=== PATIENT | male | born 1965 | race Caucasian/White ===

== ENCOUNTER 2016-09-04 13:53 | Inpatient (IN) | payer BC ==
[~2016-09-04] VITALS: Ht 182.9 cm; Wt 166.8 kg
[2016-09-04] MEDS ORDERED: LOSA100T2 PO (14:18)
[2016-09-04] MEDS ORDERED: METF500T PO (14:18)
[2016-09-04] MEDS ORDERED: MULTTAB22 PO (14:18)
[2016-09-04] MEDS ORDERED: SIMV40TA PO (14:18)
[2016-09-04] MEDS ORDERED: PIOG45TA3 PO (14:18)
[2016-09-04] MEDS ORDERED: EXEN1INJ SQ (14:18)
[2016-09-04] MEDS ORDERED: AMLO10TA2 PO (14:18)
[2016-09-16] VITALS (7 sets, daily range): BP systolic 102–175; BP diastolic 67–106; PULSE 81–102; RESP 16–18; TEMP 96.4–98.4; O2SAT 90–97
[2016-09-16] MEDS ORDERED: ceFAZolin 2 GM PREMIX 50 ML IV SCH (05:45)
[2016-09-16] MEDS ORDERED: LACTATED RINGER'S 1000 ML IV PRN (05:45)
[2016-09-16] MEDS ORDERED: METOPROLOL TARTRATE 25 MG TAB PO PRN (05:45)
[2016-09-16] MEDS ORDERED: POVIDONE IODINE 5% (ANTISEPSIS KIT) 4 APPLICATIONS EACH NARE PRN (05:45)
[2016-09-16] MEDS ORDERED: CHLORHEXIDINE GLUCONATE 2 % 1 PACK (2 CLOTHS) TOPICAL PRN (05:45)
[2016-09-16] MEDS ORDERED: SODIUM CHLORID 0.9% 500 ML IV PRN (05:45)
[2016-09-16] MEDS ORDERED: INSULIN HUMAN REGULAR 1,000 UNITS/10 ML VIAL SQ PRN (05:45)
[2016-09-16] MEDS ORDERED: GENTAMICIN SULFATE 80 MG/2 ML VIAL ONE (06:19)
[2016-09-16] MEDS ORDERED: TRANEXAMIC ACID IV SCH ×2 (06:30→10:00)
[2016-09-16] MEDS ORDERED: EXPAREL PERI-ARTICULAR INJECTION (TOTAL VOL. 60 ML) P-ARTICULR SCH ×2 (06:30)
[2016-09-16] MEDS ORDERED: SODIUM CHLORIDE 0.9% IV SCH ×2 (06:30→10:00)
[2016-09-16] MEDS ORDERED: DEXAMETHASONE SOD PHOS 4 MG/ML VIAL ONE (06:38)
[2016-09-16] MEDS ORDERED: MIDAZOLAM HCL 2 MG/2 ML VIAL ONE ×2 (06:38→07:08)
[2016-09-16] MEDS ORDERED: FAMOTIDINE 20 MG/2 ML VIAL ONE (06:38)
[2016-09-16] MEDS: LACTATED RINGER'S 1000 ML INJ 1,000 ML IV SCH ×2 (06:56→17:57)
[2016-09-16] MEDS ORDERED: Post-op Orders (for Pharmacy) MISC XX ONE (07:00)
[2016-09-16] MEDS ORDERED: SODIUM CHLORIDE 0.9% FLUSH 5 ML FLUSH IVF PRN (07:00)
[2016-09-16] MEDS ORDERED: MORPHINE SULFATE 4 MG/ML INJ IV PUSH PRN (07:00)
[2016-09-16] MEDS ORDERED: TRANEXAMIC ACID INJ 0 MG in SODIUM CHLORIDE 0.9% INJ 100 ML IV SCH (07:00)
[2016-09-16] MEDS ORDERED: BUPIVACAINE HCL PF 0.5% 30 ML VIAL NERV BLOCK ONE (08:13)
[2016-09-16] MEDS ORDERED: NON-FORMULARY DRUG (Losartan-Hydrochlorothiazide 1 TAB) PO SCH (09:00)
[2016-09-16] MEDS: SODIUM CHLORIDE 0.9% FLUSH 5 ML FLUSH IVF SCH ×2 (09:00→21:00)
[2016-09-16] MEDS ORDERED: metFORMIN HCL 500 MG TAB PO SCH (09:00)
--- NOTE | 2016-09-16 10:49 | HHI.FF ---
Face to Face Verification Diagnosis: (1) Status post total left knee replacement Physical Therapy Gait training Knee: Total knee, Protocol: Left, Gait training, Full weight bearing Left LE Weight Bearing: WB as tolerated Left LE Range of Motion: Active ROM (AROM, AAROM, PROM, PRE. ROM goal is 0 to 120 degrees. ROM in OR was 0 to 120 degrees.) Nursing Nursing: Dressing changes Dressing Changes: Daily dressing change, Coverderm/Primapore Additional Instructions Remove steristrips on postop day 14. I have seen patient Mike Duque on 09/16/16. My clinical findings support the need for the requested home health care services because: Ltd mobility - disease progression Limited ability to care for self High risk of falls I certify that my clinical findings support that this patient is homebound because: Post-op weakness Unsteady gait/balance Unsafe to leave home unassisted Naeem Padilla MD (Charles) Sep 16, 2016 10:49
[2016-09-16] MEDS ORDERED: ACETAMINOPHEN 1000 MG/100 ML VIAL IV ONE (10:53)
[2016-09-16] MEDS ORDERED: ONDANSETRON HCL 4 MG/2 ML VIAL IVP PRN (11:30)
--- NOTE | 2016-09-16 11:55 | RADRPT ---
EXAM DATE/TIME: 09/16/2016 11:02 [place] COMPARISON: No previous studies available for comparison. INDICATIONS : Post op knee surgery MEDICAL HISTORY : None. SURGICAL HISTORY : None. ENCOUNTER: Initial ACUITY: 1 day PAIN SCORE: Non-responsive. LOCATION: Left knee FINDINGS: AP and lateral views of the left knee were obtained and demonstrate that the patient is status post a rthroplasty. The tibial and femoral components are intact and in normal alignment. There are postoper ative changes involving the patella with anterior soft tissue swelling and gas in the soft tissues. T here are [address]. CONCLUSION: Suspected postoperative changes status post arthroplasty. Bhupendra Kinney MD on September 16, 2016 at 11:52 Board Certified Radiologist. This report was verified electronically.
[2016-09-16] MEDS ORDERED: LACTATED RINGER'S 1000 ML INJ 1,000 ML IV ONE (12:00)
[2016-09-16] MEDS ORDERED: PROPOFOL 200 MG/20 ML AMP IV ONE (12:00)
[2016-09-16 12:05] LABS: AUTOMATED NEUTROPHIL # 8.3 TH/MM3 (1.8-7.7); BASOPHIL % 0.3 % (0.0-2.0); EOSINOPHIL % 0.4 % (0.0-4.0); HEMATOCRIT 37.2 % (39.0-51.0); LYMPH % 6.3 % (9.0-44.0); LYMPHOCYTE # 0.6 TH/MM3 (1.0-4.8); MEAN CELL VOLUME 78.9 FL (80.0-100.0); MEAN CORPUSCULAR HEMOGLOBIN 24.8 PG (27.0-34.0); MEAN CORPUSCULAR HGB CONC 31.4 % (32.0-36.0); MONO % 1.7 % (0.0-8.0); NEUT % 91.3 % (16.0-70.0); PLATELET COUNT 267 TH/MM3 (150-450); RED BLOOD COUNT 4.71 MIL/MM3 (4.50-5.90); RED CELL DISTRIBUTION WIDTH 15.7 % (11.6-17.2)
[2016-09-16 12:06] LABS: HEMO FLAGS AUTO DIFF
[2016-09-16 12:29] LABS: BICARBONATE 26.9 MEQ/L (21.0-32.0); POTASSIUM 4.3 MEQ/L (3.5-5.1)
[2016-09-16 12:43] LABS: SCAN/DIFF AUTO DIFF CONFIRMED
[2016-09-16] MEDS: LOSARTAN 50 MG TAB PO SCH (13:26)
[2016-09-16] MEDS: MULTIVITAMINS/MINERALS THERAPEUTIC TAB PO SCH (13:26)
[2016-09-16] MEDS: KETOROLAC TROMETHAMINE 30 MG/ML (IVP) VIAL IVP SCH ×3 (13:27→23:43)
[2016-09-16] MEDS: MAGNESIUM HYDROXIDE SUSP 30 ML CUP PO PRN (13:28)
[2016-09-16] MEDS: ACETAMINOPHEN/HYDROcodone 325 MG/7.5 MG TAB PO PRN ×3 (13:28→23:43)
[2016-09-16] MEDS: HYDROCHLOROTHIAZIDE 25 MG TAB PO SCH (13:36)
[2016-09-16] MEDS: PIOGLITAZONE HCL 45 MG TAB PO SCH (15:25)
--- NOTE | 2016-09-16 18:18 | PD.CONS ---
[facility] Reason for Consult Med management Primary Care Physician Non-Staff Diagnoses: History of Present Illness 51 years old male admitted for elective left total knee arthroplasty, patient has a history of hypertension diabetes mellitus and hyperlipidemia, he had his right knee replaced previously, I saw the patient postop he was doing well, no chest pain or short of breath, no abdominal pain or fever or chills, his left knee has no pain he had still under anesthesia effect. Review of Systems All 10 systems reviewed and was positive for what is mentioned in history of present illness otherwise negative Past Family Social History Allergies: Coded Allergies: No Known Allergies (Unverified , 09/16/16) Past Medical History Hypertension Hyperlipidemia Diabetes mellitus Family History Grandfather has heart attack in his 80s Social History Denied tobacco alcohol or illicit drug abuse Physical Exam Vital Signs Vital Signs Date Time Temp Pulse Resp B/P Pulse Ox O2 Delivery O2 Flow Rate FiO2 09/16/16 16:31 97 Nasal Cannula 4.00 09/16/16 16:00 97.0 102 18 102/67 96 09/16/16 14:05 97 Nasal Cannula 4.00 09/16/16 13:25 92 159/106 97 161/97 09/16/16 12:00 96.4 85 18 123/73 90 09/16/16 11:30 82 14 135/84 97 Nasal Cannula 4 09/16/16 11:15 78 13 137/77 95 Nasal Cannula 4 09/16/16 11:00 81 13 136/78 94 Nasal Cannula 4 09/16/16 10:45 86 13 125/78 93 Nasal Cannula 4 09/16/16 10:39 98.6 88 12 131/79 95 Nasal Cannula 4 09/16/16 05:43 98.3 81 16 175/100 95 Physical Exam GENERAL: This is a well-nourished, well-developed patient, in no apparent distress. SKIN: No rashes, warm and dry HEAD: Atraumatic. Normocephalic. EYES: Pupils equal round and reactive. Extraocular motions intact. No scleral icterus. ENT: Nose without bleeding, or drainage, Airway patent. NECK: Trachea midline. Supple CARDIOVASCULAR: Regular rate and rhythm without murmurs, gallops, or rubs. RESPIRATORY: Fair air entry bilaterally. No wheezes, rales, or rhonchi. GASTROINTESTINAL: Abdomen soft, non-tender, nondistended. Positive bowel sounds MUSCULOSKELETAL: Extremities without clubbing, cyanosis, or edema. Pedal pulses appreciated NEUROLOGICAL: Awake and alert. Moves all extremity except left lower extremity being operated on. Normal speech.no focal neurological deficit Laboratory Laboratory Tests Test 09/16/16 09/16/16 05:41 11:45 Blood Type A POSITIVE Antibody Screen NEGATIVE White Blood Count 9.0 Red Blood Count 4.71 Hemoglobin 11.7 Hematocrit 37.2 Mean Corpuscular Volume 78.9 Mean Corpuscular Hemoglobin 24.8 Mean Corpuscular Hemoglobin 31.4 Concent Red Cell Distribution Width 15.7 Platelet Count 267 Mean Platelet Volume 8.7 Neutrophils (%) (Auto) 91.3 Lymphocytes (%) (Auto) 6.3 Monocytes (%) (Auto) 1.7 Eosinophils (%) (Auto) 0.4 Basophils (%) (Auto) 0.3 Neutrophils # (Auto) 8.3 Lymphocytes # (Auto) 0.6 Monocytes # (Auto) 0.2 Eosinophils # (Auto) 0.0 Basophils # (Auto) 0.0 CBC Comment AUTO DIFF Differential Comment AUTO DIFF CONFIRMED Sodium Level 139 Potassium Level 4.3 Chloride Level 106 Carbon Dioxide Level 26.9 Anion Gap 6 Blood Urea Nitrogen 12 Creatinine 0.77 Estimat Glomerular Filtration 106 Rate Random Glucose 176 Calcium Level 8.7 Result Diagram: 09/16/16 1145 09/16/16 1145 Imaging Last Impressions Knee X-Ray 09/16/16 0000 Signed Impressions: Service Date/Time: Friday, September 16, 2016 11:02 - CONCLUSION: Suspected postoperative changes status post arthroplasty. Bhupendra Kinney MD Assessment and Plan Assessment and Plan 51 years old male admitted for osteoarthritis Status post left total knee arthroplasty: Doing well continue postop management , pain management, DVT prophylaxis per ortho Hypertension: Resume losartan and hydrochlorothiazide, Vasotec as needed, monitor blood pressure Hyperlipidemia: Continue statin Diabetes mellitus: He is on Actos, okay to continue, ISS with Accu-Chek DVT prophylaxis, SCD, per ortho Kerwin Shipley MD Sep 16, 2016 18:18
[2016-09-16] MEDS ORDERED: ZOLPIDEM TARTRATE 5 MG TAB PO PRN (21:00)
[2016-09-16] MEDS: PRAVASTATIN SOD 80 MG TAB PO SCH (21:35)
[2016-09-17] VITALS (8 sets, daily range): BP systolic 108–137; BP diastolic 56–80; PULSE 86–98; RESP 17–22; TEMP 97–98; O2SAT 93–97
[2016-09-17] MEDS: CHLORHEXIDINE GLUCONATE 4% SOLN 120 ML BTL TOPICAL SCH ×2 (03:16→21:28)
--- NOTE | 2016-09-17 06:10 | PD.ORT.PN ---
Subjective Post Op Day #: 1 Subjective Remarks He is doing well with almost no pain. This knee was much easier than the last one. Range of Motion 0 to 91 degrees. Distance Walked 15 feet. Objective Vitals Vital Signs Date Time Temp Pulse Resp B/P Pulse Ox O2 Delivery O2 Flow Rate FiO2 09/17/16 04:40 97.0 88 17 120/67 94 09/17/16 00:15 98.0 94 17 133/72 95 09/16/16 19:45 98.4 93 17 127/78 93 09/16/16 16:31 97 Nasal Cannula 4.00 09/16/16 16:00 97.0 102 18 102/67 96 09/16/16 14:05 97 Nasal Cannula 4.00 09/16/16 13:25 92 159/106 97 161/97 09/16/16 12:00 96.4 85 18 123/73 90 09/16/16 11:30 82 14 135/84 97 Nasal Cannula 4 09/16/16 11:15 78 13 137/77 95 Nasal Cannula 4 09/16/16 11:00 81 13 136/78 94 Nasal Cannula 4 09/16/16 10:45 86 13 125/78 93 Nasal Cannula 4 09/16/16 10:39 98.6 88 12 131/79 95 Nasal Cannula 4 I/O 09/16/16 09/16/16 09/16/16 09/17/16 09/17/16 09/17/16 07:00 15:00 23:00 07:00 15:00 23:00 Intake Total 3218 ml 720 ml Output Total 535 ml 1600 ml Balance 2683 ml -880 ml Intake Oral 960 ml 720 ml IV Total 358 ml Other 1900 ml Output Urine Total 100 ml 1350 ml Drainage Total 110 ml 250 ml Estimated Blood Loss 325 ml # Voids 1 # Bowel Movements 0 Result Diagram: 09/16/16 1145 09/16/16 1145 Imaging Knee x-ray looks good. Last 72 hours Impressions Knee X-Ray 09/16/16 0000 Signed Impressions: Service Date/Time: Friday, September 16, 2016 11:02 - CONCLUSION: Suspected postoperative changes status post arthroplasty. Bhupendra Kinney MD Objective Remarks He is resting comfortably, supine in bed in the [facility]. The dressing is dry and intact. the neurovascular status is intact. Assessment & Plan Ortho Post Op Day #: 1 Problem List: (1) Status post total left knee replacement Plan: Continue postop care and PT. Assessment and Plan Condition: Good. Orthopaedically stable. DVT prophylaxis: TEDs, sequentials, ASA. Discharge plans: Home with [facility], probably tomorrow. Discussed tobacco use with him. Naeem Padilla MD ([place]) Sep 17, 2016 06:10
[2016-09-17] MEDS: KETOROLAC TROMETHAMINE 30 MG/ML (IVP) VIAL IVP SCH ×4 (06:19→23:25)
[2016-09-17] MEDS: MAGNESIUM HYDROXIDE SUSP 30 ML CUP PO PRN (06:19)
[2016-09-17] MEDS: ACETAMINOPHEN/HYDROcodone 325 MG/7.5 MG TAB PO PRN ×6 (06:19→21:30)
[2016-09-17 07:09] LABS: BASOPHIL # 0.1 TH/MM3 (0-0.2); BASOPHIL % 0.6 % (0.0-2.0); EOSINOPHIL # 0.1 TH/MM3 (0-0.4); EOSINOPHIL % 1.5 % (0.0-4.0); HEMATOCRIT 32.6 % (39.0-51.0); HEMO FLAGS DIFF FINAL; LYMPH % 22.4 % (9.0-44.0); MEAN CELL VOLUME 78.4 FL (80.0-100.0); MEAN CORPUSCULAR HEMOGLOBIN 25.1 PG (27.0-34.0); MEAN CORPUSCULAR HGB CONC 32.1 % (32.0-36.0); MONO % 9.7 % (0.0-8.0); NEUT % 65.8 % (16.0-70.0); PLATELET COUNT 245 TH/MM3 (150-450); RED BLOOD COUNT 4.16 MIL/MM3 (4.50-5.90); RED CELL DISTRIBUTION WIDTH 15.7 % (11.6-17.2); WHITE BLOOD COUNT 9.1 TH/MM3 (4.0-11.0)
[2016-09-17 07:45] LABS: BICARBONATE 31.4 MEQ/L (21.0-32.0)
[2016-09-17 07:48] LABS: POTASSIUM 4.3 MEQ/L (3.5-5.1)
[2016-09-17] MEDS: LACTATED RINGER'S 1000 ML INJ 1,000 ML IV SCH ×2 (07:50→19:57)
[2016-09-17] MEDS: SODIUM CHLORIDE 0.9% FLUSH 5 ML FLUSH IVF SCH ×2 (09:00→21:00)
[2016-09-17] MEDS: LOSARTAN 50 MG TAB PO SCH (10:35)
[2016-09-17] MEDS: PIOGLITAZONE HCL 45 MG TAB PO SCH (10:36)
[2016-09-17] MEDS: MULTIVITAMINS/MINERALS THERAPEUTIC TAB PO SCH (10:36)
[2016-09-17] MEDS: HYDROCHLOROTHIAZIDE 25 MG TAB PO SCH (10:36)
[2016-09-17] MEDS: ASPIRIN EC 81 MG TABEC PO SCH ×2 (10:45→21:27)
--- NOTE | 2016-09-17 12:31 | HHI.PR ---
Subjective Remarks Follow up on left knee total arthroplasty Patient doing well comfortably laying in bed, left lower extremity immobilizer Afebrile no chest pain or short of breath Objective Vitals Vital Signs Date Time Temp Pulse Resp B/P Pulse Ox O2 Delivery O2 Flow Rate FiO2 09/17/16 09:31 96 Nasal Cannula 4.00 09/17/16 08:00 97.8 86 20 134/72 93 09/17/16 04:40 97.0 88 17 120/67 94 09/17/16 00:15 98.0 94 17 133/72 95 09/16/16 19:45 98.4 93 17 127/78 93 09/16/16 16:31 97 Nasal Cannula 4.00 09/16/16 16:00 97.0 102 18 102/67 96 09/16/16 14:05 97 Nasal Cannula 4.00 09/16/16 13:25 92 159/106 97 161/97 I/O 09/16/16 09/16/16 09/16/16 09/17/16 09/17/16 09/17/16 07:00 15:00 23:00 07:00 15:00 23:00 Intake Total 3218 ml 720 ml 240 ml Output Total 535 ml 1600 ml 90 ml Balance 2683 ml -880 ml 150 ml Intake Oral 960 ml 720 ml 240 ml IV Total 358 ml Other 1900 ml Output Urine Total 100 ml 1350 ml Drainage Total 110 ml 250 ml 90 ml Estimated Blood Loss 325 ml # Voids 1 3 # Bowel Movements 0 0 Result Diagram: 09/17/1630 09/17/16 0530 Objective Remarks GENERAL: This is a well-nourished, well-developed patient, in no apparent distress. CARDIOVASCULAR: Regular rate and rhythm without murmurs, gallops, or rubs. RESPIRATORY: Clear to auscultation. Breath sounds equal bilaterally. No wheezes , rales, or rhonchi. GASTROINTESTINAL: Abdomen soft, non-tender, nondistended. Normal active bowel sounds MUSCULOSKELETAL: Extremities without clubbing, cyanosis, or edema. Left lower extremity in mobilizer NEURO: Alert & Oriented x4 to person, place, time, situation. Moves all ext x4 A/P Assessment and Plan 51 years old male admitted for osteoarthritis Status post left total knee arthroplasty: Doing well continue postop management , pain management, DVT prophylaxis differed to ortho SCD/ASA Hypertension: Resume losartan and hydrochlorothiazide, Vasotec as needed, monitor blood pressure Hyperlipidemia: Continue statin Diabetes mellitus: He is on Actos, okay to continue, ISS with Accu-Chek DVT prophylaxis, SCD, per ortho 09/17 doing well , no acute issue , will follow remotely Kerwin Shipley MD Sep 17, 2016 12:31
--- NOTE | 2016-09-17 17:42 | MP ---
cc: Anna WAHL. DATE OF SURGERY 09/16/16 PREOPERATIVE DIAGNOSIS Primary osteoarthritis left knee POSTOPERATIVE DIAGNOSIS Primary osteoarthritis left knee OPERATION PERFORMED Left total knee arthroplasty with Torrie Triathlon TR 88 joules and prosthesis (uncemented). SURGEON Kenya Wahl MD [employer] Joseph Carlos CSFA ANESTHESIA Spinal with supplemental saphenous nerve block regional and local. INDICATIONS AND FINDINGS This 51-year-old man has had left knee pain for several years which has progressively worsened to the point that his ambulation tolerance is 150 yards. He has difficulty ascending and descending stairs and ladders. 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 He has been unable to take anti-inflammatory agents because of lap band surgery. He continues to have difficulty with activities of daily living. Physical findings showed medial laxity with crepitation on motion and tenderness on motion with an antalgic gait. Range of motion is minus 5-105 degrees. X-rays showed some significant arthritis down to [id number] in the medial compartment with medial, lateral and patellofemoral osteophytes. Operative findings are consistent with the radiographic findings with there being severe osteoarthritis that was tricompartmental in nature with exposed bone, subchondral sclerosis and large osteophytes. The prosthesis used was a [place] Triathlon prosthesis. The femur was a size six uncemented cruciate-retaining. The tibia was a size seven tritanium baseplate with a 9 mm cruciate-retaining spacer of X3 polyethylene. The patella was a tritanium backed asymmetric patella size 38. PROCEDURE IN DETAIL The patient was brought to the operating room and adductor canal regional with a spinal anesthetic were administered. This was done after an initial time-out. The left leg was then prepped with alcohol, Hibiclens and Chloraprep and draped in the usual manner with the knee draped free. A pneumatic tourniquet had been placed about the left thigh. After an appropriate time-out procedure, the incision site was injected with local anesthetic. An anterior incision was then made from about three to four fingerbreadths above the superior medial pole of the patella down to the tibial tubercle on the medial side. The incision was deepened through the subcutaneous tissues to the retinacular structures which were exposed medially and laterally. Medial retinacular incision was made from the superior medial pole of patella down to the tibial tubercle and up into the quadriceps tendon splitting it longitudinally in the medial one-third. The patella was reflected. Medial and lateral dissection was carried out. The posterior surface of the patella was excised with the oscillating saw after resection of the infrapatellar fat pad. This was protected with a patella protector. This was slipped into the lateral gutter. Fenestration was made in the distal end of the femur with the appropriate drill. Reaming was carried out into the femur and the tibia. Osteophytes were trimmed about the femur and tibia for placement of retractors. Distal femoral cutting guide was assembled and positioned for an 8 mm 5 degree cut. This was positioned appropriately and impacted and seated appropriately. Cutting block was stabilized with pins. The jig was removed. The distal femoral cut was completed with the oscillating saw. The sizing guide was positioned along white sides line and the epicondylar axis. This was stabilized with pins. The size was determined to be a size six femur. The 4:1 cutting block was then positioned in place. Anterior and posterior cuts were made followed by posterior and anterior chamfer cuts. The remainder of the osteophytes were trimmed from the femur. A bone plug was placed into the distal end of the femur to fill the fenestration. Attention was directed to the tibia. Medial and lateral meniscectomies were completed. The anterior cruciate ligament remnants were removed. Osteophytes were trimmed. The proximal tibial cutting guide and jig were then assembled and positioned appropriately. The intramedullary guide was stabilized for rotation. The depth of cut was verified with a stylus. The cutting block was stabilized with pins. The jig was removed. Proximal tibial cut was verified with the spacer block. The cutting block was stabilized with locking pin. Proximal tibial cut was then completed with the oscillating saw taking care to prevent injury to associated structures. The knee was anesthetized at the capsule with Exparel throughout the knee. The size seven tibial baseplate trial was positioned in place and appeared to be appropriate. A 9 mm spacer was inserted. The size six femoral trial was impacted into place and seated appropriately. The tibia was pinned in the appropriate rotation. The patella drill holes were then made. His was for a 38-mm patella. Trial prosthesis was inserted. The knee was taken through a range of motion which was easily 0 degrees extension to a maximum of 120 degrees of flexion with some pressure. The tracking was appropriate. The soft tissues prevented further motion. The distal femoral drill holes were made followed by removal of the femoral trial and the patella trial. Tibial spacer was removed. The tibial punch was impacted through its guide after placement of a bone plug into the tibia. The tibial drill guide was positioned in place and drill holes made. The cut ends of bone were cleaned with pulse lavage. Tibial baseplate which was a size seven tritanium was impacted into place and seated appropriately. The 9-mm cruciate-retaining spacer was impacted into place as well. After repositioning, the femoral component which was a size six was inserted and impacted into place and seated appropriately. The patella was positioned with a patella vice and seated appropriately. The knee was taken through a range of motion which was comparable to that with the trial prosthesis. The stability was excellent. Tracking was appropriate. Drains were brought out the superolateral aspect of the suprapatellar pouch. The remainder of the Exparel was injected throughout the knee. Wound closure then commenced using 0 Vicryl interrupted [id number] sutures with the retinacular structures and capsular structures, 2-0 Vicryl interrupted simple sutures with buried knots for the subcutaneous tissues and 4-0 Monocryl continuous subcuticular closure for the skin. The wound was dressed with Steri-Strips followed by dry dressing, sterile Sof-Rol, cooling pad, further sterile Sof-Rol and Bean bandage from the base of the toe to midthigh. The patient was transferred from the operating room to the recovery room in satisfactory condition having tolerated the procedure well. Counts were correct. Specimens none. Estimated blood loss less 350 mL. MD KRYSTEN Ayon/ /10:27 AM /5:14 PM
[2016-09-17] MEDS: PRAVASTATIN SOD 80 MG TAB PO SCH (21:26)
[2016-09-17] MEDS: DOCUSATE SODIUM 100 MG CAP PO SCH (21:28)
[2016-09-18 00:47] VITALS: BP 125/57; PULSE 92; RESP 20; TEMP 98.8; O2SAT 95
[2016-09-18] MEDS: ACETAMINOPHEN/HYDROcodone 325 MG/7.5 MG TAB PO PRN ×4 (03:28→12:29)
[2016-09-18 04:13] VITALS: BP 142/78; PULSE 94; RESP 19; TEMP 98.2; O2SAT 93
[2016-09-18] MEDS: KETOROLAC TROMETHAMINE 30 MG/ML (IVP) VIAL IVP SCH (06:04)
[2016-09-18 06:50] LABS: HEMATOCRIT 33.3 % (39.0-51.0); REVIEW FLAG FINAL
--- NOTE | 2016-09-18 07:09 | PD.ORT.PN ---
Subjective Post Op Day #: 2 Subjective Remarks He is doing quite well with almost no pain. He is anxious to go home. Range of Motion -5 to 94 degrees. Distance Walked 120 feet with PT. Objective Vitals Vital Signs Date Time Temp Pulse Resp B/P Pulse Ox O2 Delivery O2 Flow Rate FiO2 09/18/16 04:13 98.2 94 19 142/78 93 09/18/16 00:47 98.8 92 20 125/57 95 09/17/16 19:28 97.1 98 20 137/78 96 09/17/16 18:16 97 Nasal Cannula 4.00 09/17/16 16:56 97.9 93 22 108/56 97 09/17/16 12:00 98.0 86 20 136/80 95 09/17/16 09:31 96 Nasal Cannula 4.00 09/17/16 08:00 97.8 86 20 134/72 93 I/O 09/17/16 09/17/16 09/17/16 09/18/16 09/18/16 09/18/16 07:00 15:00 23:00 07:00 15:00 23:00 Intake Total 240 ml 3382 ml 360 ml 480 ml Output Total 90 ml 340 ml 285 ml 890 ml Balance 150 ml 3042 ml 75 ml -410 ml Intake Oral 240 ml 2100 ml 360 ml 480 ml IV Total 1282 ml Output Urine Total 250 ml 225 ml 850 ml Drainage Total 90 ml 90 ml 60 ml 40 ml # Voids 3 2 # Bowel Movements 0 0 0 2 Result Diagram: 09/18/16 0555 09/17/16 0530 Imaging Knee x-ray looks good. Last 72 hours Impressions Knee X-Ray 09/16/16 0000 Signed Impressions: Service Date/Time: Friday, September 16, 2016 11:02 - CONCLUSION: Suspected postoperative changes status post arthroplasty. Bhupendra Kinney MD Objective Remarks He is resting comfortably, supine in bed in the [facility]. The dressing is dry and intact. the neurovascular status is intact. There is no erythema or induration. Assessment & Plan Ortho Post Op Day #: 2 Problem List: (1) Status post total left knee replacement Plan: Continue postop care and PT. Assessment and Plan Condition: Good. Orthopaedically stable. DVT prophylaxis: TEDs, sequentials, ASA. Discharge plans: Home with [facility]. Discussed tobacco use with him. Rx: Pillow 7.5/325, Celebrex 200mg Naeem Padilla MD (Charles) Sep 18, 2016 07:09
[2016-09-18 08:00] VITALS: BP 142/76; PULSE 98; RESP 18; TEMP 98; O2SAT 97
[2016-09-18] MEDS ORDERED: ASPI81TA11 PO (08:10)
[2016-09-18] MEDS ORDERED: CELE1CAP8 PO (08:10)
[2016-09-18] MEDS ORDERED: HYDR-3580 PO (08:10)
[2016-09-18] MEDS: PIOGLITAZONE HCL 45 MG TAB PO SCH (08:30)
[2016-09-18] MEDS: MULTIVITAMINS/MINERALS THERAPEUTIC TAB PO SCH (08:30)
[2016-09-18] MEDS: LOSARTAN 50 MG TAB PO SCH (08:30)
[2016-09-18] MEDS: DOCUSATE SODIUM 100 MG CAP PO SCH (08:30)
[2016-09-18] MEDS: ASPIRIN EC 81 MG TABEC PO SCH (08:30)
[2016-09-18] MEDS: HYDROCHLOROTHIAZIDE 25 MG TAB PO SCH (08:30)
[2016-09-18] MEDS: SODIUM CHLORIDE 0.9% FLUSH 5 ML FLUSH IVF SCH (08:34)
[2016-09-18 09:27] VITALS: O2SAT 97
[2016-09-21] MEDS ORDERED: PT OWN MED: Exenatide Pen Inj (Bydureon Pen Inj) 2 MG SQ SCH (09:00)
== END 2016-09-18 12:47 | disposition home health service (06) | DRG 470 ==
LOC: HSDI 09-16 05:04 → N06B 09-16 11:57
PROVIDERS: ADMIT Orthopaedic Surgery; ATTEND Orthopaedic Surgery
PROC: 3E0T3CZ (ICD-10-PCS; 2016-09-16)
PROC: 0SRD0JA Replacement of Left Knee Joint with Synthetic Substitute, Uncemented, Open Approach (ICD-10-PCS; principal; 2016-09-16 06:50)
DX: M17.12 Unilateral primary osteoarthritis, left knee (principal); I10 Essential (primary) hypertension; E78.5 Hyperlipidemia, unspecified; E11.9 Type 2 diabetes mellitus without complications
CPT/HCPCS: 73560; 80048; 85014; 85018; 85025; 86850; 86900; 86901; 94150; C1776; C9290; J0131; J0690; J1100; J1580; J1885; J2250; J7120

== ENCOUNTER → 2016-09-04 | Outpatient (CLI) | payer BC ==
[~2016-09-04] MED LIST: 1-ME1LIQ PO; AMLO10TA2 PO; ASPI81TA11 PO; CELE1CAP8 PO; CELE200 PO; DOXA1 PO; EXEN1INJ ID; EXEN1INJ SQ; GLIM2TAB PO; HYDR-3580 PO; LOSA100T2 PO; LOSA100T3 PO; METF500 PO; METF500T PO; MULTTAB22 PO; NORC10TA2 PO; PIOG45 PO; PIOG45TA3 PO; RIVA10 PO; SIMV20 PO; SIMV40TA PO; Z.0.COMMODE-3:1; Z.0.WALKERFRONT
== END ==
LOC: CPRE 13:49
PROVIDERS: ATTEND Orthopaedic Surgery
DX: M17.12 Unilateral primary osteoarthritis, left knee (principal)